=== PATIENT | female | born 1950 | race Caucasian/White ===

== ENCOUNTER 2021-02-24 10:54 | Outpatient (CLI) | payer MEDICARE, OTHER ==
[2021-02-24 12:29] LABS: #Basophils 0.1 10x3/uL (0.0-0.2); #Eosinphils 0.1 10x3/uL (0.0-0.5); #Monocytes 0.5 10x3/uL (0.0-1.1); #Neutrophils 3.8 10x3/uL (1.5-8.4); %Basophils 1.3 % (0.0-2.0); %Eosinophils 1.6 % (0.0-6.0); %Lymphocytes 28.7 % (18.0-47.0); %Monocytes 8.2 % (0.0-10.0); %Neutrophils 59.9 % (40.0-75.0); Hemoglobin 10.9 g/dL (12.0-15.5); Mean Corpuscular HGB CONC 32.4 g/dL (32.0-36.0); Mean Corpuscular Volume 89.4 fl (81.6-98.3); Platelet Count 418 10x3/uL (150-450); RBC Distribution Width 12.8 % (11.5-14.5); Red Blood Cell (RBC) Count 3.76 10x6/uL (3.90-5.03); White Blood Cell (WBC) Count 6.4 10x3/uL (3.5-10.5)
[2021-02-24 13:04] LABS: Anion Gap 13 mmol/L (10-20); BUN (Urea Nitrogen) 16 mg/dL (9.8-20.1); Calc. Creatinine Clearance 0 mL/min (70-130); Calcium 8.8 mg/dL (7.8-10.44); Carbon Dioxide 29 mmol/L (23-31); Chloride 106 mmol/L (98-107); Glucose 100 mg/dL (83-110); Potassium 4.1 mmol/L (3.5-5.1); Sodium 144 mmol/L (136-145)
[2021-02-25 11:36] LABS: SARS-CoV-2 PCR by NAA Not Detected (NotDetected)
== END 2021-02-24 10:55 | disposition home or self-care (01) ==
LOC: LABBT 10:54
PROVIDERS: ATTEND Specialist
DX: Z01.818 Encounter for other preprocedural examination (principal); C50.919 Malignant neoplasm of unspecified site of unspecified female breast; Z20.822 Contact with and (suspected) exposure to COVID-19
CPT/HCPCS: 80048; 85025; 93005; U0003; U0005; 93010

== ENCOUNTER 2021-03-01 07:35 | Day surgery (SDC) | payer MEDICARE, OTHER ==
[2021-02-23 10:55] VITALS: BMI 24.7
[2021-03-01] MEDS ORDERED: Ketorolac Tromethamine 30 MG/ML VIAL ONE (09:27)
[2021-03-01] MEDS ORDERED: Acetaminophen 500 MG TAB ONE (09:27)
[2021-03-01] MEDS ORDERED: ceFAZolin 2 GM/DEX 5% 100 ML BAG ONE (09:27)
[2021-03-01] MEDS ORDERED: Xylocaine 1% w/ Epi 1:100K 10 ML VIAL ONE (10:58)
[2021-03-01] MEDS ORDERED: Bupivacaine 0.25% 10 ML VIAL ONE (10:58)
[2021-03-01] MEDS ORDERED: Isosulfan Blue 50 MG/5 ML VIAL ONE (10:58)
[2021-03-01] MEDS ORDERED: Fentanyl 100 MCG/2 ML VIAL ONE ×2 (11:18)
[2021-03-01] MEDS ORDERED: Famotidine/PF 20 mg/2ml Vial ONE (11:18)
[2021-03-01] MEDS ORDERED: PROPOFOL 200 MG/20 ML VIAL ONE (11:34)
[2021-03-01] MEDS ORDERED: Dexamethasone 20 MG/5 ML VIAL ONE (11:34)
[2021-03-01] MEDS ORDERED: Ondansetron PF 4 MG/2 ML Vial ONE (11:34)
[2021-03-01] MEDS ORDERED: Lidocaine 1% PF 5 ML VIAL ONE (11:34)
[2021-03-01] MEDS ORDERED: Ondansetron ODT 4 MG TAB ONE (13:47)
== END 2021-03-01 15:52 | disposition home or self-care (01) ==
LOC: SDC 07:35
PROVIDERS: ATTEND Specialist
PROC: 0HBU0ZZ Excision of Left Breast, Open Approach (ICD-10-PCS; principal; 2021-03-01)
PROC: 07B60ZX Excision of Left Axillary Lymphatic, Open Approach, Diagnostic (ICD-10-PCS; 2021-03-01)
DX: C50.512 Malignant neoplasm of lower-outer quadrant of left female breast (principal); Z17.0 Estrogen receptor positive status [ER+]; Z79.01 Long term (current) use of anticoagulants; Z79.899 Other long term (current) drug therapy; Z88.2 Allergy status to sulfonamides
CPT/HCPCS: 19301; 38525; 38900; 76098; 78195; A9541; C1713; Q9968; 88307; 88342; J1100; J1885; J2405; J2704; J3010; Q0162; S0020; S0028

== ENCOUNTER 2022-05-03 13:05 | Outpatient (CLI) | payer MEDICARE, OTHER | END 2022-05-03 13:06 | disposition home or self-care (01) | LOC: SCSMRI 13:05 | PROVIDERS: ATTEND Orthopaedic Surgery | DX: M25.511 Pain in right shoulder (principal); M67.813 Other specified disorders of tendon, right shoulder ==

== ENCOUNTER 2025-02-02 08:57 | Outpatient (CLI) | payer MEDICARE, OTHER | END 2025-02-02 08:58 | disposition home or self-care (01) | LOC: SCSBT 08:57 | PROVIDERS: ATTEND Specialist | DX: M85.89 Other specified disorders of bone density and structure, multiple sites (principal); M81.0 Age-related osteoporosis without current pathological fracture | CPT/HCPCS: 77080 ==